=== PATIENT | male | born 1970 | race Caucasian/White ===

== ENCOUNTER 2020-09-18 10:27 | Emergency (ER) | payer OTHER ==
[~2020-09-18] VITALS: Ht 185.4 cm; Wt 79.5 kg
[2020-09-18 10:52] VITALS: BP 131/93
--- NOTE | 2020-09-18 10:57 | EKG ---
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
[2020-09-18] MEDS ORDERED: IV NORMAL SALINE 1,000ML 1,000 ML IV ONE (11:00)
[2020-09-18] MEDS ORDERED: ONDANSETRON PF 4 MG/2 ML VIAL. IVP ONE (11:00)
[2020-09-18] MEDS ORDERED: MECLIZINE 12.5 MG TABLET. PO ONE (11:00)
[2020-09-18 11:02] LABS: BASO # 0.1 x10^3/uL (0.0-0.2); BASO % 1 % (0-3); EOS # 0.1 x10^3/uL (0.0-0.7); EOS % 1 % (0-3); HEMATOCRIT 43.2 % (39.0-53.0); HEMOGLOBIN 14.3 g/dL (13.0-17.5); LYMPH # 2.3 x10^3/uL (1.0-4.8); LYMPH % 14 % (24-48); MEAN CORPUSCULAR HEMOGLOBIN 30 pg (25-35); MEAN CORPUSCULAR HGB CONC 33 g/dL (31-37); MEAN CORPUSCULAR VOLUME 91 fL (79-100); MONO # 0.7 x10^3/uL (0.0-1.1); MONO % 4 % (0-9); NEUT # 13.1 x10^3uL (1.8-7.7); NEUT % 80 % (31-73); PLATELET COUNT 249 x10^3/uL (140-400); RED BLOOD COUNT 4.75 x10^6/uL (4.30-5.70); RED CELL DISTRIBUTION WIDTH 14.3 % (11.5-14.5); WHITE BLOOD COUNT 16.3 x10^3/uL (4.0-11.0)
[2020-09-18 11:11] LABS: CALCIUM 9.3 mg/dL (8.5-10.1); GFR 80.1; POTASSIUM 4.4 mmol/L (3.5-5.1)
--- NOTE | 2020-09-18 11:14 | RAD ---
CT HEAD/BRAIN WO History: Dizziness, headache, blurry vision. Comparison: None. Technique: Noncontrast CT imaging was performed of the head. Findings: No intracranial hemorrhage. No mass effect. No hydrocephalus. Extra-axial spaces are unremarkable. Imaged orbits are unremarkable. Imaged paranasal sinuses and mastoid air cells are clear. No acute ca lvarial fracture. Impression: 1. No acute intracranial abnormality. ----- Exposure: One or more of the following individualized dose reduction techniques were utilized for thi s examination: 1. Automated exposure control 2. Adjustment of the mA and/or kV according to patient size 3. Use of iterative reconstruction technique. Electronically signed by: Sidney Doll MD (09/18/2020 11:12 AM) [facility]
[2020-09-18 11:23] LABS: ALBUMIN 4.3 g/dL (3.4-5.0); ALBUMIN/GLOBULIN RATIO 1.1 (1.0-1.7); TOTAL BILIRUBIN 0.3 mg/dL (0.2-1.0); TOTAL PROTEIN 8.1 g/dL (6.4-8.2)
--- NOTE | 2020-09-18 11:59 | PHYS DOC ---
Past History Past Medical History: Other Additional Past Medical Histor: psoriasis Past Surgical History: Other Alcohol Use: None General Adult EDM: Chief Complaint: NAUSEA/VOMITING/DIARRHEA HPI: HPI: Patient is a 49-year-old male who presented to ER due to dizziness, had trouble focus on the right eye, ringing in his ear more on the left side, when he walks he had a tendency to lean to the left side because of the spinning sensation. Patient denies any chest pain, no trouble breathing, no nausea vomiting. Patient denied headache. Patient said he was normal this morning, he just ate breakfast, got into his car to go to work when the symptoms started at 930 a.m. Patient denies any weakness or numbness anywhere, denies any slurred speech. Patient denies any recent travel or operation, he had no previous history of heart disease or stroke. Patient had Covid infection last February. He also completed the Covid vaccine series already. The symptoms got worse with head movement or upright position. Review of Systems: Review of Systems: Constitutional: Denies fever or chills Eyes: Positive for right eye blurry vision. HENT: Denies nasal congestion or sore throat . Positive for ringing in his ears Respiratory: Denies cough or shortness of breath Cardiovascular: Denies chest pain or edema GI: Denies abdominal pain, nausea, vomiting, bloody stools or diarrhea : Denies dysuria Musculoskeletal: Denies back pain or joint pain Integument: Denies rash Neurologic: Denies headache, focal weakness or sensory changes . Positive for dizziness Endocrine: Denies polyuria or polydipsia Lymphatic: Denies swollen glands Psychiatric: Denies depression or anxiety Current Medications: Current Meds: Current Medications Medications (Trade) Dose Ordered Sig/Mary Start Time Stop Time Status Last Admin Dose Admin Meclizine HCl (Antivert) 25 mg 1X ONCE 09/18/20 11:00 09/18/20 11:20 DC 09/18/20 11:18 25 MG Ondansetron HCl (Zofran) 4 mg 1X ONCE 09/18/20 11:00 09/18/20 11:20 DC 09/18/20 11:19 4 MG Sodium Chloride 1,000 ml @ 1,000 mls/hr 1X ONCE 09/18/20 11:00 09/18/20 11:59 09/18/20 11:19 1,000 MLS/HR Allergies: Allergies: Allergies Coded Allergies Type Severity Reaction Last Updated Verified No Known Drug Allergies 09/18/20 No Physical Exam: PE: Constitutional: Well developed, well nourished, no acute distress, non-toxic radha earance. [] HENT: Normocephalic, atraumatic, bilateral external ears normal, oropharynx moist, no oral exudates, nose normal. [] Eyes: PERRLA, EOMI, conjunctiva normal, no discharge. [] Neck: Normal range of motion, no tenderness, supple, no stridor. [] Cardiovascular:Heart rate regular rhythm, no murmur [] Lungs & Thorax: Bilateral breath sounds clear to auscultation [] Abdomen: Bowel sounds normal, soft, no tenderness, no masses, no pulsatile masses. [] Skin: Warm, dry, no erythema, no rash. [] Back: No tenderness, no CVA tenderness. [] Extremities: No tenderness, no cyanosis, no clubbing, ROM intact, no edema. [] Neurologic: Alert and oriented X 3, normal motor function, normal sensory function, no focal deficits noted. [] Psychologic: Affect normal, judgement normal, mood normal. [] Current Patient Data: Labs: Laboratory Tests Test 09/18/20 10:35 White Blood Count 16.3 x10^3/uL (4.0-11.0) H Red Blood Count 4.75 x10^6/uL (4.30-5.70) Hemoglobin 14.3 g/dL (13.0-17.5) Hematocrit 43.2 % (39.0-53.0) Mean Corpuscular Volume 91 fL (79-100) Mean Corpuscular Hemoglobin 30 pg (25-35) Mean Corpuscular Hemoglobin Concent 33 g/dL (31-37) Red Cell Distribution Width 14.3 % (11.5-14.5) Platelet Count 249 x10^3/uL (140-400) Neutrophils (%) (Auto) 80 % (31-73) H Lymphocytes (%) (Auto) 14 % (24-48) L Monocytes (%) (Auto) 4 % (0-9) Eosinophils (%) (Auto) 1 % (0-3) Basophils (%) (Auto) 1 % (0-3) Neutrophils # (Auto) 13.1 x10^3uL (1.8-7.7) H Lymphocytes # (Auto) 2.3 x10^3/uL (1.0-4.8) Monocytes # (Auto) 0.7 x10^3/uL (0.0-1.1) Eosinophils # (Auto) 0.1 x10^3/uL (0.0-0.7) Basophils # (Auto) 0.1 x10^3/uL (0.0-0.2) Platelet Estimate Pending Sodium Level 141 mmol/L (136-145) Potassium Level 4.4 mmol/L (3.5-5.1) Chloride Level 103 mmol/L (98-107) Carbon Dioxide Level 27 mmol/L (21-32) Anion Gap 11 (6-14) Blood Urea Nitrogen 14 mg/dL (8-26) Creatinine 1.0 mg/dL (0.7-1.3) Estimated GFR (Cockcroft-Gault) 80.1 BUN/Creatinine Ratio 14 (6-20) Glucose Level 94 mg/dL (70-99) Calcium Level 9.3 mg/dL (8.5-10.1) Magnesium Level 2.0 mg/dL (1.8-2.4) Total Bilirubin 0.3 mg/dL (0.2-1.0) Aspartate Amino Transferase (AST) 28 U/L (15-37) Alanine Aminotransferase (ALT) 30 U/L (16-63) Alkaline Phosphatase 89 U/L (46-116) Troponin I Quantitative < 0.017 ng/mL (0-0.055) Total Protein 8.1 g/dL (6.4-8.2) Albumin 4.3 g/dL (3.4-5.0) Albumin/Globulin Ratio 1.1 (1.0-1.7) Vital Signs: Vital Signs Date Time Temp Pulse Resp B/P (MAP) Pulse Ox O2 Delivery O2 Flow Rate FiO2 09/18/20 10:52 97.8 78 18 131/93 (106) 98 EKG: EKG: EKG was done at 1039, heart rate 79 beats per minutes, normal sinus rhythm, no ST segment elevation. Normal axis. Radiology/Procedures: Radiology/Procedures: [][address] [address] IMAGING REPORT Signed PATIENT: MARIAH MANDUJANO ACCOUNT: [id number] : 1970 LOCATION: ER AGE: 49 SEX: M EXAM STATUS: REG ER ORD. PHYSICIAN: GUY SIMMONS DO REASON: DIZZINESS, HEADACHE, BLURRY VISION PROCEDURE: CT HEAD WO CONTRAST CT HEAD/BRAIN WO History: Dizziness, headache, blurry vision. Comparison: None. Technique: Noncontrast CT imaging was performed of the head. Findings: No intracranial hemorrhage. No mass effect. No hydrocephalus. Extra-axial spaces are unremarkable. Imaged orbits are unremarkable. Imaged paranasal sinuses and mastoid air cells are clear. No acute calvarial fracture. Impression: 1. No acute intracranial abnormality. ----- Exposure: One or more of the following individualized dose reduction techniques were utilized for this examination: 1. Automated exposure control 2. Adjustment of the mA and/or kV according to patient size 3. Use of iterative reconstruction technique. Electronically signed by: Sidney Fulton MD (09/18/2020 11:12 AM) [facility] DICTATED AND SIGNED BY: SIDNEY FULTON MD DATE: 09/18/20 1110 CC: SELENA GARCIAS; GUY SIMMONS DO ~MTH0 0 Heart Score: C/O Chest Pain: N/A Risk Factors: Risk Factors: DM, Current or recent (<one month) smoker, HTN, HLP, family history of CAD, obesity. Risk Scores: Score 0 - 3: 2.5% MACE over next 6 weeks - Discharge Home Score 4 - 6: 20.3% MACE over next 6 weeks - Admit for Clinical Observation Score 7 - 10: 72.7% MACE over next 6 weeks - Early Invasive Strategies Course & Med Decision Making: Course & Med Decision Making Pertinent Labs and Imaging studies reviewed. (See chart for details) Patient had no focal neurological deficits on examination, his NIH stroke scale is 0. Patient was given 25 mg meclizine po. He felt much better. He was able to get up, walked to the restroom without any problem. Will discharge him home, follow up with neurologist for outpatient evaluation and treatment. Kristy Disclaimer: Kristy Disclaimer: This electronic medical record was generated, in whole or in part, using a voice recognition dictation system. Departure Departure: Impression: Primary Impression: Vertigo Disposition: 01 DC HOME SELF CARE/HOMELESS Condition: IMPROVED Referrals: SELENA GARCIAS (PCP) RENETTA LANGLEY MD Please call this neurologist for follow up this week. Patient Instructions: Vertigo Additional Instructions: Thank you for visiting our Emergency Department. We appreciate you trusting us with your care. If any additional problems come up don't hesitate to return to visit us. Please follow up with your primary care provider so they can plan additional care if needed and know about the problem that you had. If symptoms worsen come back to the Emergency Department. Any concerning symptoms that start such as chest pain, shortness of air, weakness or numbness on one side of the body, running high fevers or any other concerning symptoms return to the ER. Scripts Meclizine Hcl (MECLIZINE HCL) 25 Mg Tablet 1 TAB PO PRN TID for dizziness, #30 TAB Prov: GUY SIMMONS DO 09/18/20 GUY SIMMONS DO Sep 18, 2020 11:59
[2020-09-18 12:35] LABS: % ATYL 4 % (0-0); % BANDS 10 % (0-9); % BASOS 1 % (0-3); % LYMPHS 14 % (24-48); % MONOS 5 % (0-10); % SEGS 66 % (35-66); PLT ESTIMATE ADEQUATE (ADEQUATE)
[2020-09-18 13:40] LABS: BARBITURATES NEG (NEG); BENZODIAZEPINES NEG (NEG); CANNABINOIDS NEG (NEG); COCAINE NEG (NEG); METHADONE NEG (NEG); OPIATES NEG (NEG); PHENCYCLIDINE NEG (NEG)
[2020-09-18 13:46] LABS: AMPHETAMINE/METHAMPHETAMINE NEG (NEG)
[2020-09-18 13:51] LABS: BACTERIA,URINE 0 /HPF (0-FEW); BILIRUBIN,URINE NEG (NEG); CLARITY,URINE CLEAR; COLOR,URINE YELLOW; GLUCOSE,URINE NEG (NEG); NITRITE,URINE NEG (NEG); RBC,URINE OCC /HPF (0-2); SQUAMOUS EPITHELIAL CELL,UR OCC /LPF; UROBILINOGEN,URINE 0.2 mg/dL (0.2 mg/dL)
[2020-09-18] MEDS ORDERED: MECL-75 PO (13:57)
== END 2020-09-18 14:01 | disposition home or self-care (01) ==
LOC: ER 10:27
DX: R42 Dizziness and giddiness (principal); H93.12 Tinnitus, left ear
CPT/HCPCS: 36415; 70450; 80053; 80307; 81001; 83735; 84484; 85025; 93005; 96361; 96374; 99285; J2405; J7030; 85007